=== PATIENT | male | born 1995 | race Two or more races ===

== ENCOUNTER 2021-09-08 12:43 | Emergency (ER) | payer SELFPAY ==
[2021-09-08] MEDS ORDERED: valACYclovir 500 MG Tab PO ONE (13:07)
== END 2021-09-08 13:33 | disposition home or self-care (01) ==
LOC: MW.ED 12:43
DX: B00.89 Other herpesviral infection (principal)
CPT/HCPCS: 99283; A9270

== ENCOUNTER 2023-04-10 12:11 | Emergency (ER) | payer BC ==
[2023-04-10] MEDS ORDERED: Tetracaine HCl/PF 0.5% 4 ML Bottle EYEBOTH ONE (12:29)
[2023-04-10] MEDS ORDERED: Famotidine 20 MG Tab PO ONE (12:48)
[2023-04-10] MEDS ORDERED: diphenhydrAMINE 50 MG Cap PO ONE (12:48)
== END 2023-04-10 14:21 | disposition home or self-care (01) ==
LOC: MW.ED 12:11
DX: T78.40XA Allergy, unspecified, initial encounter (principal); B00.9 Herpesviral infection, unspecified
CPT/HCPCS: 99283; A9270; J3490